=== PATIENT | male | born 1995 | race African-American/Black ===

== ENCOUNTER 2018-01-17 13:46 | Emergency (ER) | payer SELFPAY ==
[~2018-01-17] VITALS: Ht 170.2 cm; Wt 92.1 kg
[~2018-01-17 13:46] MED LIST: ALBU1.25 NEB; ALBU2.5V5 NEB; ALBU8.5H6 IH; CIPR500T94 PO; CLIN300C8 PO; DIPH25CA58 PO; DOXY50CA PO; FAMO-63 PO; FLUT12AE IH; IPRA0.2S5 NEB; MUPI22OI TP; PRED20TA PO; PRED50TA PO
[2018-01-17] MEDS ORDERED: IPRATRPIUM/ALBUTEROL 0.5/2.5MG 3 ML NEBU. NEB ONE (14:15)
--- NOTE | 2018-01-17 14:19 | PHYS DOC ---
Past History Past Medical History: Asthma, Other Past Surgical History: No Surgical History Smoking: Cigarettes Alcohol Use: None Drug Use: Marijuana Adult General Chief Complaint Chief Complaint: SHORTNESS OF BREATH HPI HPI 22-year-old male patient with history of asthma and smoking complaining of cough for 2 months. Patient states he had intermittent episodes of productive cough with yellow sputum and shortness of breath with nasal congestion and sore throat without fever and chills and vomiting and diarrhea. Patient states he was seen by his primary care physician and treated with Zithromax couple weeks ago without improvement of his condition. Patient stated home nebulizer and inhaler does not helping for his shortness of breath and he thinks he had pneumonia. Patient also states his physician did not give him prednisone that usually helping for his shortness of breath. Review of Systems Review of Systems Constitutional: Denies fever or chills [] Eyes: Denies change in visual acuity, redness, or eye pain [] HENT: Reports nasal congestion and sore throat [] Respiratory: Reports cough and shortness of breath [] Cardiovascular: No additional information not addressed in HPI [] GI: Denies abdominal pain, nausea, vomiting, bloody stools or diarrhea [] : Denies dysuria or hematuria [] Musculoskeletal: Denies back pain or joint pain [] Integument: Denies rash or skin lesions [] Neurologic: Denies headache, focal weakness or sensory changes [] Endocrine: Denies polyuria or polydipsia [] All other systems were reviewed and found to be within normal limits, except as documented in this note. Current Medications Current Medications Current Medications Medications (Trade) Dose Ordered Sig/[facility] Start Time Stop Time Status Last Admin Dose Admin Albuterol/ Ipratropium (Duoneb) 3 ml 1X ONCE 01/17/18 14:15 01/17/18 14:16 Methylprednisolone Sodium Succinate (SOLU-Medrol 125MG VIAL) 125 mg 1X ONCE 01/17/18 14:30 01/17/18 14:31 Allergies Allergies Allergies Coded Allergies Type Severity Reaction Last Updated Verified Penicillins Allergy Severe 07/07/16 Yes Sulfa (Sulfonamide Antibiotics) Allergy Severe 07/07/16 Yes azithromycin Allergy Intermediate 07/07/16 Yes cefaclor Allergy Intermediate 07/07/16 Yes Physical Exam Physical Exam Constitutional: Well developed, well nourished, mild distress, non-toxic appearance. [] HENT: Normocephalic, atraumatic, bilateral external ears normal, oropharynx moist, no oral exudates, nose normal. [] Eyes: PERRLA, EOMI, conjunctiva normal, no discharge. [] Neck: Normal range of motion, no tenderness, supple, no stridor. [] Cardiovascular:Heart rate regular rhythm, no murmur [] Lungs & Thorax: Bilateral breath sounds clear to auscultation [] Abdomen: Bowel sounds normal, soft, no tenderness, no masses, no pulsatile masses. [] Skin: Warm, dry, no erythema, no rash. [] Back: No tenderness, no CVA tenderness. [] Extremities: No tenderness, no cyanosis, no clubbing, ROM intact, no edema. [] Neurologic: Alert and oriented X 3, normal motor function, normal sensory function, no focal deficits noted. [] Psychologic: Affect normal, judgement normal, mood normal. [] Current Patient Data Vital Signs Vital Signs Date Time Temp Pulse Resp B/P (MAP) Pulse Ox O2 Delivery O2 Flow Rate FiO2 01/17/18 13:54 98.2 107 18 98 Room Air EKG EKG [] Radiology/Procedures Radiology/[place] [address] IMAGING REPORT Signed PATIENT: JACOB PANDEY ACCOUNT: [id number] : 1995 LOCATION: ER AGE: 22 SEX: M EXAM STATUS: REG ER ORD. PHYSICIAN: ESTEBAN GALDAMEZ MD REASON: cough and shortness of breath for 2 months PROCEDURE: CHEST PA & LATERAL PA and lateral chest radiograph. History: Wheezing cough for 2 months. Asthma. Smoking history. Comparison: July 07, 2016. Findings: Cardiomediastinal silhouette is within normal limits for size. No pneumothorax or pleural effusion is identified. There is thought to be a mild infiltrate involving the right lung base. Impression: 1. Mild infiltrate involving the right lung base. Electronically signed by: Jules Olivarez MD (01/17/2018 2:31 PM) [place] [id number] DICTATED AND SIGNED BY: JULES OLIVAREZ MD DATE: 01/17/18 9795 CC: ESTEBAN GALDAMEZ MD; PCP,NO ~ [] Course & Med Decision Making Course & Med Decision Making Pertinent Imaging studies reviewed. (See chart for details) Evaluation of patient in ER showed 22-year-old female patient with history of asthma and smoking complaining of cough for 2 months without respond to outpatient treatment. Patient had unremarkable physical exam. X-ray showed small right lower lobe infiltrate. Patient is allergic to several medication and does not have insurance and plan to give prescription for Cipro and course of prednisone and instruction to quit smoking and follow up with his primary care physician. [] Dragon Disclaimer Dragon Disclaimer This electronic medical record was generated, in whole or in part, using a voice recognition dictation system. Departure Departure: Impression: Primary Impression: Right lower lobe pneumonia Additional Impressions: Asthma exacerbation Tobacco abuse Tobacco abuse counseling Disposition: HOME, SELF-CARE (At 1447) Condition: IMPROVED Referrals: PCP,NO (PCP) Patient Instructions: Asthma, Acute Bronchospasm, Pneumonia, Adult, Smoking Cessation, Tips For Success Additional Instructions: Drink plenty of liquids Follow-up with your primary care physician in 3-5 days Return to ER if not getting better Scripts Prednisone (PREDNISONE) 50 Mg Tablet 1 TAB PO DAILY, #5 TAB Prov: SETEBAN GALDAMEZ MD 01/17/18 Benzonatate (TESSALON PERLE) 100 Mg Capsule 1 CAP PO TID, #30 CAP Prov: ESTEBAN GALDAMEZ MD 01/17/18 Ciprofloxacin Hcl (CIPRO) 500 Mg Tablet 1 TAB PO BID, #14 TAB Prov: ESTEBAN GALDAMEZ MD 01/17/18 Problem Qualifiers ESTEBAN GALDAMEZ MD January 17, 2018 14:19
[2018-01-17] MEDS ORDERED: methylPREDNISolone SOD SUCC PF 125 MG/2 ML VIAL. IM ONE (14:30)
--- NOTE | 2018-01-17 14:35 | RAD ---
PA and lateral chest radiograph. History: Wheezing cough for 2 months. Asthma. Smoking history. Comparison: July 07, 2016. Findings: Cardiomediastinal silhouette is within normal limits for size. No pneumothorax or pleural effusion is identified. There is thought to be a mild infiltrate involving the right lung base. Impression: 1. Mild infiltrate involving the right lung base. Electronically signed by: Jules Olivarez MD (01/17/2018 2:31 PM) [place] [id number]
[2018-01-17] MEDS ORDERED: PRED50TA PO (14:51)
[2018-01-17] MEDS ORDERED: CIPR500T94 PO (14:51)
[2018-01-17] MEDS ORDERED: BENZ100C PO (14:51)
[2018-01-17 14:59] VITALS: BP 143/95
== END 2018-01-17 15:00 | disposition home or self-care (01) ==
LOC: ER 13:46
DX: J18.1 Lobar pneumonia, unspecified organism (principal); J45.901 Unspecified asthma with (acute) exacerbation; F17.210 Nicotine dependence, cigarettes, uncomplicated; Z71.6 Tobacco abuse counseling; F12.10 Cannabis abuse, uncomplicated; Z88.0 Allergy status to penicillin; Z88.2 Allergy status to sulfonamides; Z88.1 Allergy status to other antibiotic agents
CPT/HCPCS: 71046; 94640; 96372; 99284; J2930; J7620

== ENCOUNTER 2018-04-12 19:17 | Emergency (ER) | payer SELFPAY ==
[~2018-04-12] VITALS: Ht 172.7 cm; Wt 90.7 kg
[~2018-04-12 19:17] MED LIST changes: +BENZ100C PO
[2018-04-12] MEDS ORDERED: IPRATRPIUM/ALBUTEROL 0.5/2.5MG 3 ML NEBU. NEB ONE (20:30)
[2018-04-12] MEDS ORDERED: predniSONE 20 MG TABLET PO ONE (20:30)
--- NOTE | 2018-04-12 21:26 | RAD ---
PA and lateral chest radiograph. History: Cough. Comparison: January 17, 2018. Findings: Cardiomediastinal silhouette is within normal limits for size. Bilateral lung hdz appear clear without evidence of infiltrate, effusion, or pneumothorax. Impression: 1. No acute cardiopulmonary process. Electronically signed by: Jules Olivarez MD (04/12/2018 9:22 PM) [facility]
[2018-04-12 21:30] VITALS: BP 132/71
[2018-04-12] MEDS ORDERED: PRED20TA PO (21:36)
[2018-04-12] MEDS ORDERED: ALBU1.25 NEB (21:36)
[2018-04-12] MEDS ORDERED: ALBU8.5H8 INH (21:36)
[2018-04-12] MEDS ORDERED: BENZ100C PO (21:36)
--- NOTE | 2018-04-12 21:37 | PHYS DOC ---
Past History Past Medical History: Asthma, Other Past Surgical History: No Surgical History Smoking: Cigarettes Alcohol Use: Occasionally Drug Use: Marijuana Adult General Chief Complaint Chief Complaint: COUGH HPI HPI 22-year-old male with past medical history of asthma presents with report of increased wheezing with associated nonproductive cough 3 days. Denies fever or chills. 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 Reports he also got his child sick. Reports some associated nasal congestion. Patient reports using an albuterol inhaler prior to arrival without significant improvement. Review of Systems Review of Systems Constitutional: Denies fever or chills [] Eyes: Denies change in visual acuity, redness, or eye pain [] HENT: Reports nasal congestion and mild sore throat Respiratory: Reports nonproductive cough and wheezing Cardiovascular: Denies chest pain or syncope GI: Denies abdominal pain, nausea, vomiting, bloody stools or diarrhea [] : Denies dysuria or hematuria [] Musculoskeletal: Denies back pain or joint pain [] Integument: Denies rash or skin lesions [] Neurologic: Denies headache, focal weakness or sensory changes [] Complete systems were reviewed and found to be within normal limits, except as documented in this note. Current Medications Current Medications Current Medications Medications (Trade) Dose Ordered Sig/[facility] Start Time Stop Time Status Last Admin Dose Admin Albuterol/ Ipratropium (Duoneb) 3 ml 1X ONCE 04/12/18 20:30 04/12/18 20:31 DC 04/12/18 20:30 3 ML Prednisone (Prednisone) 40 mg 1X ONCE 04/12/18 20:30 04/12/18 20:31 DC 04/12/18 20:36 40 MG Allergies Allergies Allergies Coded Allergies Type Severity Reaction Last Updated Verified Penicillins Allergy Severe 07/07/16 Yes Sulfa (Sulfonamide Antibiotics) Allergy Severe 07/07/16 Yes azithromycin Allergy Intermediate 07/07/16 Yes cefaclor Allergy Intermediate 07/07/16 Yes Physical Exam Physical Exam Constitutional: Well developed, well nourished, no acute distress, non-toxic appearance. [] HENT: Normocephalic, atraumatic, oropharynx moist, no oral exudates, nose- turbinates enlarged, no sinus tenderness on palpation Eyes: EOMI, conjunctiva normal, no discharge. [] Neck: Normal range of motion, no tenderness, supple, no stridor. [] Cardiovascular:Heart rate regular rhythm, no murmur [] Lungs & Thorax: Expiratory wheezing appreciated, no respiratory distress Abdomen: Bowel sounds normal, soft, no tenderness, no masses, no pulsatile masses. [] Skin: Warm, dry, no erythema, no rash. [] Back: No tenderness, no CVA tenderness. [] Extremities: No tenderness, no cyanosis, no clubbing, ROM intact, no edema. [] Neurologic: Alert and oriented X 3, normal motor function, normal sensory function, no focal deficits noted. [] Psychologic: Affect normal, judgement normal, mood normal. [] Current Patient Data Vital Signs Vital Signs Date Time Temp Pulse Resp B/P (MAP) Pulse Ox O2 Delivery O2 Flow Rate FiO2 04/12/18 19:29 98.7 89 20 98 Room Air EKG EKG [] Radiology/Procedures Radiology/Procedures PROCEDURE: CHEST PA & LATERAL PA and lateral chest radiograph. History: Cough. Comparison: January 17, 2018. Findings: Cardiomediastinal silhouette is within normal limits for size. Bilateral lung hdz appear clear without evidence of infiltrate, effusion, or pneumothorax. Impression: 1. No acute cardiopulmonary process. Electronically signed by: Jules Olivarez MD (04/12/2018 9:22 PM) [facility] Course & Med Decision Making Course & Med Decision Making Pertinent Labs and Imaging studies reviewed. (See chart for details) Patient with past nuchal history of asthma presents with history of present illness and physical exam consistent for URI. Symptomatic treatment provided with respiratory nebs and oral steroid. Patient reports interval improvement of symptoms. Chest x-ray clear. Patient stable for discharge with outpatient follow -up with PCP. Discussed findings and plan with patient, who acknowledges understanding and agreement. Dragon Disclaimer Dragon Disclaimer This electronic medical record was generated, in whole or in part, using a voice recognition dictation system. Departure Departure: Impression: Primary Impression: Asthma exacerbation Additional Impression: Upper respiratory infection Condition: IMPROVED Referrals: PCP,NO (PCP) Patient Instructions: Asthma, Adult, [id number], Upper Respiratory Infection , Adult, [id number] Scripts Prednisone (PREDNISONE) 20 Mg Tablet 2 TAB PO DAILY for 5 Days, #10 TAB Prov: JULES BEYER DO 04/12/18 Albuterol Sulfate (PROAIR HFA INHALER) 8.5 Gm Hfa.aer.ad 1 PUFF INH PRN Q6HRS PRN for SHORTNESS OF BREATH, #1 INHALER 0 Refills Prov: JULES BEYER DO 04/12/18 Albuterol Sulfate (ALBUTEROL SULFATE NEB SOLN) 1.25 Mg/3 Ml Vial.neb 1 VIAL NEB Q4-6HRS PRN for WHEEZING, #150 ML 0 Refills Prov: JULES BEYER DO 04/12/18 Benzonatate (TESSALON PERLE) 100 Mg Capsule 1 CAP PO TID, #30 CAP Prov: JULES BEYER DO 04/12/18 Problem Qualifiers Primary Impression: Asthma exacerbation Asthma severity: mild Asthma persistence: persistent Qualified Codes: J45.31 - Mild persistent asthma with (acute) exacerbation Additional Impression: Upper respiratory infection URI type: unspecified viral URI Qualified Codes: J06.9 - Acute upper respiratory infection, unspecified JULES BEYER DO Apr 12, 2018 21:37
== END 2018-04-12 21:45 | disposition home or self-care (01) ==
LOC: ER 19:17
DX: J45.901 Unspecified asthma with (acute) exacerbation (principal); J06.9 Acute upper respiratory infection, unspecified; F17.210 Nicotine dependence, cigarettes, uncomplicated; Z88.0 Allergy status to penicillin; Z88.2 Allergy status to sulfonamides; Z88.1 Allergy status to other antibiotic agents
CPT/HCPCS: 71046; 94640; 99284; J7512; J7620

== ENCOUNTER 2018-11-19 14:07 | Emergency (ER) | payer SELFPAY ==
[~2018-11-19] VITALS: Ht 172.7 cm; Wt 90.7 kg
[~2018-11-19 14:07] MED LIST changes: +ALBU2.5V8 INH
[2018-11-19 14:17] VITALS: BP 161/84
--- NOTE | 2018-11-19 14:27 | PHYS DOC ---
Past History Past Medical History: Asthma, Other Past Surgical History: No Surgical History Smoking: Cigarettes Alcohol Use: Occasionally Drug Use: Marijuana Adult General Chief Complaint Chief Complaint: FLU SYMPTOM HPI HPI 22-year-old male presents with 3 day history of nasal drainage, congestion, cough, and general ill feeling. He's had a low-grade fever but did not give me a number. He denies feeling crampy of, but admits feeling somewhat weak. He denies nausea, vomiting, diarrhea and constipation. Patient has a history of hereditary spherocytosis. Review of Systems Review of Systems Constitutional: Fever and chills [] Eyes: Denies change in visual acuity, redness, or eye pain [] HENT: nasal congestion with sore throat [] Respiratory: Cough without shortness of breath [] Cardiovascular: No additional information not addressed in HPI [] GI: Denies abdominal pain, nausea, vomiting, bloody stools or diarrhea [] : Denies dysuria or hematuria [] Musculoskeletal: Denies back pain or joint pain [] Integument: Denies rash or skin lesions [] Neurologic: Denies headache, focal weakness or sensory changes [] Endocrine: Denies polyuria or polydipsia [] All other systems were reviewed and found to be within normal limits, except as documented in this note. Allergies Allergies Allergies Coded Allergies Type Severity Reaction Last Updated Verified Penicillins Allergy Severe 07/07/16 Yes Sulfa (Sulfonamide Antibiotics) Allergy Severe 07/07/16 Yes azithromycin Allergy Intermediate 07/07/16 Yes cefaclor Allergy Intermediate 07/07/16 Yes Physical Exam Physical Exam Constitutional: Well developed, well nourished, no acute distress, non-toxic appearance. [] HENT: Normocephalic, atraumatic, bilateral external ears normal, oropharynx moist, no oral exudates, nose with clear drainage. [] Eyes: PERRLA, EOMI, conjunctiva normal, no discharge. [] Neck: Normal range of motion, no tenderness, supple, no stridor. [] Cardiovascular:Heart rate regular rhythm, no murmur [] Lungs & Thorax: Bilateral breath sounds decreased but clear to auscultation [] Abdomen: Bowel sounds normal, soft, no tenderness, no masses, no pulsatile masses. [] Skin: Warm, dry, no erythema, no rash. [] Back: No tenderness, no CVA tenderness. [] Extremities: No tenderness, no cyanosis, no clubbing, ROM intact, no edema. [] Neurologic: Alert and oriented X 3, normal motor function, normal sensory function, no focal deficits noted. [] Psychologic: Affect normal, judgement normal, mood normal. [] EKG EKG [] Radiology/Procedures Radiology/Procedures [] Impressions: Chest, PA and Lateral: Technique: PA and lateral views of the chest were obtained. History: Cough, weakness. Comparison: 04/12/2018. Findings: The heart and pulmonary vasculature appear within normal limits. There are mild patchy airspace opacities identified in the right upper lobe of the lung.. The pleural margins are clear. Impression: Mild patchy airspace opacities identified in the right upper lobe of the lung likely atelectasis or infiltrates.. Electronically signed by: Johnson Young MD (11/19/2018 3:28 PM) [facility] DICTATED AND SIGNED BY: JOHNSON YOUNG MD DATE: 11/19/18 1525 CC: TERESA KRUEGER DO; PCP,NO Course & Med Decision Making Course & Med Decision Making Pertinent Labs and Imaging studies reviewed. (See chart for details) Patient's chest x-ray is highly suspicious for pneumonia. I will treat him with doxycycline since he is allergic to penicillins, sulfas, and azithromycin. We will give the first dose in the ED. She continues to be tachycardic and I want to rule out PE. CTA of the chest has been ordered. CTA is negative for PE and shows further evidence of pneumonia. I will discharge him with doxycycline as previously planned. [] Dragon Disclaimer Dragon Disclaimer This electronic medical record was generated, in whole or in part, using a voice recognition dictation system. Departure Departure: Impression: Primary Impression: Pneumonia Disposition: HOME, SELF-CARE Condition: STABLE Referrals: PCP,NO (PCP) Patient Instructions: Pneumonia, Adult, [id number] Scripts Doxycycline Hyclate (DOXYCYCLINE HYCLATE) 100 Mg Tablet 1 TAB PO BID for pneumonia, #14 TAB Prov: TERESA KRUEGER DO 11/19/18 Problem Qualifiers Primary Impression: Pneumonia Pneumonia type: due to unspecified organism Laterality: right Lung location : upper lobe of lung Qualified Codes: J18.1 - Lobar pneumonia, unspecified organism TERESA KRUEGER DO Nov 19, 2018 14:27
[2018-11-19 15:01] LABS: INFLUENZA A PATIENT NEGATIVE (NEGATIVE); INFLUENZA B PATIENT NEGATIVE (NEGATIVE)
[2018-11-19 15:04] LABS: BASO # 0.1 x10^3/uL (0.0-0.2); BASO % 1 % (0-3); EOS # 0.4 x10^3/uL (0.0-0.7); EOS % 3 % (0-3); HEMATOCRIT 32.6 % (39.0-53.0); HEMOGLOBIN 11.8 g/dL (13.0-17.5); LYMPH # 1.2 x10^3/uL (1.0-4.8); LYMPH % 9 % (24-48); MEAN CORPUSCULAR HEMOGLOBIN 31 pg (25-35); MEAN CORPUSCULAR HGB CONC 36 g/dL (31-37); MEAN CORPUSCULAR VOLUME 87 fL (79-100); MONO # 0.6 x10^3/uL (0.0-1.1); MONO % 5 % (0-9); NEUT # 11.3 x10^3uL (1.8-7.7); NEUT % 83 % (31-73); PLATELET COUNT 197 x10^3/uL (140-400); RED BLOOD COUNT 3.77 x10^6/uL (4.30-5.70); RED CELL DISTRIBUTION WIDTH 25.3 % (11.5-14.5); WHITE BLOOD COUNT 13.5 x10^3/uL (4.0-11.0)
[2018-11-19 15:25] LABS: ALBUMIN 4.2 g/dL (3.4-5.0); CALCIUM 8.9 mg/dL (8.5-10.1); CREATININE 1.1 mg/dL (0.7-1.3); GFR 102.2; POTASSIUM 3.5 mmol/L (3.5-5.1); TOTAL BILIRUBIN 3.5 mg/dL (0.2-1.0); TOTAL PROTEIN 8.3 g/dL (6.4-8.2)
--- NOTE | 2018-11-19 15:30 | RAD ---
Chest, PA and Lateral: Technique: PA and lateral views of the chest were obtained. History: Cough, weakness. Comparison: 04/12/2018. Findings: The heart and pulmonary vasculature appear within normal limits. There are mild patchy airspace opacities identified in the right upper lobe of the lung.. The pleural margins are clear. Impression: Mild patchy airspace opacities identified in the right upper lobe of the lung likely atelectasis or infiltrates.. Electronically signed by: Johnson Young MD (11/19/2018 3:28 PM) [facility]
[2018-11-19] MEDS ORDERED: DOXYCYCLINE HYCLATE 100 MG TABLET PO ONE (16:00)
[2018-11-19] MEDS ORDERED: IOHEXOL 350 MG/ML 100 ML VIAL. IV ONE (16:00)
[2018-11-19 16:04] LABS: BACTERIA,URINE 0 /HPF (0-FEW); BILIRUBIN,URINE NEG (NEG); CLARITY,URINE CLEAR; GLUCOSE,URINE NEG (NEG); NITRITE,URINE POS (NEG); RBC,URINE 0 /HPF (0-2); SQUAMOUS EPITHELIAL CELL,UR OCC /LPF; UROBILINOGEN,URINE 4 mg/dL (0.2 mg/dL); WBC,URINE OCC /HPF (0-4)
[2018-11-19 16:05] LABS: COLOR,URINE AMBER
[2018-11-19] MEDS ORDERED: IPRATRPIUM/ALBUTEROL 0.5/2.5MG 3 ML NEBU. NEB ONE (16:15)
--- NOTE | 2018-11-19 17:55 | RAD ---
CT CHEST WITH CONTRAST, PULMONARY ANGIOGRAM History: short of breath, Omni 350 90 ml iv was given, pt shielded Comparison: Chest radiograph same day, CT PE study dated 07/07/2016 Technique: Helical CT of the chest was performed after the administration of 90 mL Omni 350 intravenous contrast according to PE protocol. Sagittal and coronal MIP reconstructions were obtained. Findings: There is suboptimal contrast opacification of the pulmonary arterial system. There is no evidence of central or lobar pulmonary embolism, but the segmental and subsegmental pulmonary arterial system cannot be evaluated. The thyroid is symmetric. Enlarged mediastinal and hilar lymph nodes. For instance a right paratracheal lymph node measures 2.5 x 1.5 cm (image 35, series 4), a right hilar lymph node measures 1.7 x 1.4 cm (image 55), and a left hilar lymph node measures 1. 8 x 1.3 cm (image 70). The thoracic aorta diameter is normal. The cardiac size is normal. There is no pericardial effusion. Triangular soft tissue density in the anterior mediastinum may relate to residual thymus tissue given patient's age. Small area of consolidation in the posterior aspect of the right upper lobe. Additional areas of patchy groundglass opacities/nodularity (for instance 0.6 cm groundglass nodule in the right upper lobe on image 37, series 4, 0.7 cm right lower lobe superior segment nodule on image 59, and 0.6 x 0.3 cm left lower lobe superior segment nodule along the major fissure on image 54). No pleural effusion is observed. There is no pneumothorax. The central airways are patent. The visualized upper abdomen is unremarkable. No acute osseous abnormality. IMPRESSION: 1. There is suboptimal contrast opacification of the pulmonary arterial system. There is no evidence of central or lobar pulmonary embolism, but the segmental and subsegmental pulmonary arterial system cannot be evaluated. 2. Small area of consolidation in the posterior aspect of the right upper lobe. Additional areas of bilateral patchy groundglass opacity/nodularity. Findings are most consistent with an infectious process. Follow-up CT chest could be obtained in 3 months. 3. Mediastinal and bilateral hilar adenopathy may be reactive. Recommend attention on follow-up. Electronically signed by: Tamir Ziegler MD (11/19/2018 5:52 PM) [place] [id number]
[2018-11-19] MEDS ORDERED: DOXY100T PO (18:08)
[2018-11-19] MEDS ORDERED: ALBU2.5V8 IH (18:13)
[2018-11-19 20:57] LABS: ANISOCYTOSIS SLIGHT; PLT ESTIMATE ADEQUATE (ADEQUATE); POLYCHROMASIA SLIGHT; SCHISTOCYTES OCC
== END 2018-11-19 18:00 | disposition home or self-care (01) ==
LOC: ER 14:07
DX: J18.1 Lobar pneumonia, unspecified organism (principal); J45.909 Unspecified asthma, uncomplicated; F17.210 Nicotine dependence, cigarettes, uncomplicated; Z88.0 Allergy status to penicillin; Z88.2 Allergy status to sulfonamides; Z88.1 Allergy status to other antibiotic agents
CPT/HCPCS: 36415; 71046; 71275; 80053; 81001; 85025; 87040; 87086; 87804; 94640; 99284; J7620; Q9967

== ENCOUNTER 2019-03-03 | Emergency (ER) | payer SELFPAY ==
[~2019-03-03] VITALS: Ht 325.1 cm; Wt 84.1 kg
[~2019-03-03] MED LIST changes: +ALBU2.5V8 IH; +DOXY100T PO
[2019-03-03 00:05] VITALS: BP 161/84
--- NOTE | 2019-03-03 00:07 | ED.ADGEN ---
Past History Past Medical History: Other Past Surgical History: No Surgical History Smoking: Cigarettes Alcohol Use: None Drug Use: None Adult General Chief Complaint Chief Complaint ".. I was breaking a board.. with a shovel.. and it bounce back and hit my Rt. hand.. " HPI HPI Patient is a 23 year old male who presents with above hx and complaints 12 cm laceration to Rt. hand. Distal neurovascular intact. Patient is right-hand dominant. Patient's last tetanus was 2 years ago. No other injuries. Patient has no hx of immunosuppression. No travel. No specific ill contacts. Review of Systems Review of Systems Constitutional: Denies fever or chills [] Eyes: Denies change in visual acuity, redness, or eye pain [] HENT: Denies nasal congestion or sore throat [] Respiratory: Denies cough or shortness of breath [] Cardiovascular: No additional information not addressed in HPI [] GI: Denies abdominal pain, nausea, vomiting, bloody stools or diarrhea [] : Denies dysuria or hematuria [] Musculoskeletal: Denies back pain or joint pain [] Integument: Denies rash or skin lesions []complains of laceration to right hand Neurologic: Denies headache, focal weakness or sensory changes [] Endocrine: Denies polyuria or polydipsia [] All other systems were reviewed and found to be within normal limits, except as documented in this note. Family History Family History Noncontributory Current Medications Current Medications Current Medications Medications (Trade) Dose Ordered Sig/Abner Start Time Stop Time Status Last Admin Dose Admin Bacitracin (Bacitracin Topical Pkt) 1 pkt 1X ONCE 03/03/19 00:30 03/03/19 00:31 UNV Allergies Allergies Allergies Coded Allergies Type Severity Reaction Last Updated Verified Penicillins Allergy Severe 07/07/16 Yes Sulfa (Sulfonamide Antibiotics) Allergy Severe 07/07/16 Yes azithromycin Allergy Intermediate 07/07/16 Yes cefaclor Allergy Intermediate 07/07/16 Yes Physical Exam Physical Exam Constitutional: Well developed, well nourished, mild distress, non-toxic appearance. [] HENT: Normocephalic, atraumatic, bilateral external ears normal, oropharynx moist, no oral exudates, nose normal. [] Eyes: PERRLA, EOMI, conjunctiva normal, no discharge. [] Neck: Normal range of motion, no tenderness, supple, no stridor. [] Cardiovascular:Heart rate regular rhythm, no murmur [] Lungs & Thorax: Bilateral breath sounds clear to auscultation [] Abdomen: Bowel sounds normal, soft, no tenderness, no masses, no pulsatile masses. [] Skin: Warm, dry, no erythema, no rash. [] Back: No tenderness, no CVA tenderness. [] Extremities: No tenderness, no cyanosis, no clubbing, ROM intact, no edema. [] 12 cm laceration to the dorsal side of right hand Neurologic: Alert and oriented X 3, normal motor function, normal sensory function, no focal deficits noted. [] Psychologic: Affect anxious, judgement normal, mood normal. [] EKG EKG [] Radiology/Procedures Radiology/Procedures [] Course & Med Decision Making Course & Med Decision Making Pertinent Labs and Imaging studies reviewed. (See chart for details) Suture note- Laceration repair- hand washed with soap and water. Betadine applied. Injected edge laceration with lidocaine. Irrigated laceration normal saline. Wound or laceration cleaned with surgical scrub brush. Closed laceration with 10 juice. Patient keep laceration clean and dry. Apply Polysporin 4 times a day. Follow-up primary care. Return if any concerns. [place] out in 10 days. [] Final Impression Final Impression 1. Rt. hand Laceration 12 cm[] Dragon Disclaimer Dragon Disclaimer This electronic medical record was generated, in whole or in part, using a voice recognition dictation system. Discharge Summary Visit Information Final Diagnosis Problems Medical Problems: (1) Laceration Status: Acute Brief Hospital Course Allergies Allergies Coded Allergies Type Severity Reaction Last Updated Verified Penicillins Allergy Severe 07/07/16 Yes Sulfa (Sulfonamide Antibiotics) Allergy Severe 07/07/16 Yes azithromycin Allergy Intermediate 07/07/16 Yes cefaclor Allergy Intermediate 07/07/16 Yes Brief Hospital Course Mr. Guerrero is a 23 old male who presented with laceration Rt. hand. Discharge Information Condition at Discharge: Improved, Stable Disposition/Orders: D/C to Home Dischare Medications Current Medications Bacitracin (Bacitracin Topical Pkt) 1 pkt 1X ONCE TP ; Start 03/03/19 at 00:30; Stop 03/03/19 at 00:31; Status UNV Active Scripts Active Ventolin Hfa Inhaler (Albuterol Sulfate) 18 Gm Hfa.aer.ad 2 Puff IH PRN Q4HRS PRN Please also include a spacer Doxycycline Hyclate 100 Mg Tablet 1 Tab PO BID Prednisone 20 Mg Tablet 2 Tab PO DAILY 5 Days Proair Hfa Inhaler (Albuterol Sulfate) 8.5 Gm Hfa.aer.ad 1 Puff INH PRN Q6HRS PRN Albuterol Sulfate Neb Soln (Albuterol Sulfate) 1.25 Mg/3 Ml Vial.neb 1 Vial NEB Q4-6HRS PRN Tessalon [place] (Benzonatate) 100 Mg Capsule 1 Cap PO TID Prednisone 50 Mg Tablet 1 Tab PO DAILY Tessalon [place] (Benzonatate) 100 Mg Capsule 1 Cap PO TID Cipro (Ciprofloxacin Hcl) 500 Mg Tablet 1 Tab PO BID Prednisone 50 Mg Tablet 50 Mg PO DAILY Benadryl (Diphenhydramine Hcl) 25 Mg Capsule 50 Mg PO QIDPRN PRN Clindamycin Hcl 300 Mg Capsule 1 Cap PO TID Prednisone 20 Mg Tablet 60 Mg PO DAILY Albuterol Sulfate Hfa Inhaler (Albuterol Sulfate) 8.5 Gm Hfa.aer.ad 8.5 Gm IH PRN Q4-6HRS PRN Flovent 110MCG Hfa (Fluticasone Propionate) 12 Gm Aer.w.adap 2 Puff IH BID Ipratropium [place] 0.2 Mg/1 Ml Solution 1 Vial NEB QID Albuterol Sulfate Neb Soln (Albuterol Sulfate) 2.5 Mg/3 Ml Vial.neb 1 Vial NEB PRN Q4HRS Prednisone 20 Mg Tablet 3 Tab PO DAILY Reported Albuterol Sulfate Neb Soln (Albuterol Sulfate) 1.25 Mg/3 Ml Vial.neb 1.25 Mg NEB Q4-6HRS PRN Dragon Disclaimer This chart was dictated in whole or in part using Voice Recognition software in a busy, high-work load, and often noisy Emergency Department environment. It may contain unintended and wholly unrecognized errors or omissions. YVAN QUEZADA MD Mar 03, 2019 00:07
[2019-03-03] MEDS ORDERED: BACITRACIN ZINC TOPICAL OINT PACKET. TP ONE (00:30)
== END 2019-03-03 00:59 | disposition home or self-care (01) ==
LOC: ER
DX: S61.411A Laceration without foreign body of right hand, initial encounter (principal); Z88.0 Allergy status to penicillin; Z88.2 Allergy status to sulfonamides; Z88.1 Allergy status to other antibiotic agents; F17.210 Nicotine dependence, cigarettes, uncomplicated; W27.8XXA Contact with other nonpowered hand tool, initial encounter; Y93.89 Activity, other specified; Y92.89 Other specified places as the place of occurrence of the external cause; Y99.8 Other external cause status
CPT/HCPCS: 12004; 99283

== ENCOUNTER 2019-03-12 12:18 | Emergency (ER) | payer SELFPAY ==
[~2019-03-12] VITALS: Ht 325.1 cm; Wt 84.1 kg
--- NOTE | 2019-03-12 12:44 | PHYS DOC ---
Past History Past Medical History: Asthma, Pneumonia, URI, Other Past Surgical History: No Surgical History Smoking: Cigarettes Alcohol Use: None Drug Use: None Adult General Chief Complaint Chief Complaint: SUTURE/STAPLE REMOVAL HPI HPI Patient is a 23 year old male who presents to the emergency department for removal of juice. Patient was seen on March 03, 2019 after suffering a laceration to the base of the right thumb. Patient wound was cleaned and treated with surgical juice. States that since treatment he has had no problems. Denies any pain or drainage from the wound states he is able to move the thumb normally. Review of Systems Review of Systems Constitutional: Denies fever or chills [] Musculoskeletal: Denies back pain or joint pain [] Integument: Wound to right thumb[] Neurologic: Denies headache, focal weakness or sensory changes [] All other systems were reviewed and found to be within normal limits, except as documented in this note. Allergies Allergies Allergies Coded Allergies Type Severity Reaction Last Updated Verified Penicillins Allergy Severe 07/07/16 Yes Sulfa (Sulfonamide Antibiotics) Allergy Severe 07/07/16 Yes azithromycin Allergy Intermediate 07/07/16 Yes cefaclor Allergy Intermediate 07/07/16 Yes Physical Exam Physical Exam Constitutional: Well developed, well nourished, no acute distress, non-toxic appearance. [] Skin: Warm, dry, longitudinal right thumb wound healing well with [address] [] Extremities: No tenderness, no cyanosis, no clubbing, ROM intact, no edema. [] Neurologic: Alert and oriented X 3, normal motor function, normal sensory function, no focal deficits noted. [] Current Patient Data Vital Signs See nurse's notes. Vital signs reviewed and are stable. Lab Results Not performed EKG EKG Not performed[] Radiology/Procedures Radiology/Procedures Indication: [place] in place for 10 days Procedure: The patient was placed in the appropriate position and the juice were removed without difficulty. Other items: Total Juice removed: 9 The patient tolerated the procedure without difficulty. Complications: None[] Course & Med Decision Making Course & Med Decision Making Pertinent Labs and Imaging studies reviewed. (See chart for details) Juice removed from wound. Slight overlap of wound edges at proximal portion of wound. Steri-Strip placed at this area. Recommended to allow Steri-Strips fall off after 5-7 days. Advised follow-up with primary doctor in 1 week as needed and return to the emergency department for any worsening symptoms. Patient was understanding and in agreement with treatment plan. Dragon Disclaimer Dragon Disclaimer This electronic medical record was generated, in whole or in part, using a voice recognition dictation system. Departure Departure: Impression: Primary Impression: Encounter for staple removal Disposition: HOME, SELF-CARE Condition: GOOD Referrals: PCP,NO (PCP) Patient Instructions: Staple Removal, Care After Additional Instructions: Allow Steri-Strip to stay in place over the next 5-7 days. Follow-up with your primary doctor as needed. Return to the emergency department for any worsening symptoms. CORY GALLEGOS MD Mar 12, 2019 12:44
== END 2019-03-12 12:53 | disposition home or self-care (01) ==
LOC: ER 12:18
DX: S61.011D Laceration without foreign body of right thumb without damage to nail, subsequent encounter (principal); J45.909 Unspecified asthma, uncomplicated; F17.210 Nicotine dependence, cigarettes, uncomplicated; Z88.0 Allergy status to penicillin; Z88.2 Allergy status to sulfonamides; Z88.1 Allergy status to other antibiotic agents; X58.XXXD Exposure to other specified factors, subsequent encounter
CPT/HCPCS: 99281; 99282

== ENCOUNTER 2019-04-05 12:03 | Emergency (ER) | payer SELFPAY ==
[~2019-04-05] VITALS: Ht 175.3 cm; Wt 87.5 kg
[2019-04-05 12:20] VITALS: BP 144/66
[2019-04-05] MEDS ORDERED: DEXAMETHASONE SOD PHOS 10 MG/ML VIAL PO ONE (12:45)
--- NOTE | 2019-04-05 14:26 | PHYS DOC ---
Past History Past Medical History: No Pertinent History Past Surgical History: No Surgical History Smoking: Cigarettes Alcohol Use: None Drug Use: None Adult General Chief Complaint Chief Complaint: SORE THROAT HPI HPI Patient is a 23 yo m with sore throat x two days dry cough no fever Current Medications Current Medications Current Medications Medications (Trade) Dose Ordered Sig/Abner Start Time Stop Time Status Last Admin Dose Admin Dexamethasone Sodium Phosphate (Decadron) 8 mg 1X ONCE 04/05/19 12:45 04/05/19 12:45 DC Allergies Allergies Allergies Coded Allergies Type Severity Reaction Last Updated Verified Penicillins Allergy Severe 07/07/16 Yes Sulfa (Sulfonamide Antibiotics) Allergy Severe 07/07/16 Yes azithromycin Allergy Intermediate 07/07/16 Yes cefaclor Allergy Intermediate 07/07/16 Yes Physical Exam Physical Exam Constitutional: Well developed, well nourished, no acute distress, non-toxic appearance. [] HENT:oropharynx mild erythema no swelling no exudate. no significant lad Eyes: PERRLA, EOMI, conjunctiva normal, no discharge. [] Neck: Normal range of motion, no tenderness, supple, no stridor. [] lungs; normal effort no increased work of breathing Abdomen: Bowel sounds normal, soft, no tenderness, no masses, no pulsatile masses. [] Skin: Warm, dry, no erythema, no rash. [] Extremities: No tenderness, no cyanosis, no clubbing, ROM intact, no edema. [] Neurologic: Alert and oriented X 3, normal motor function, normal sensory function, no focal deficits noted. [] Psychologic: Affect normal, judgement normal, mood normal. [] Current Patient Data Vital Signs Vital Signs Date Time Temp Pulse Resp B/P (MAP) Pulse Ox O2 Delivery O2 Flow Rate FiO2 04/05/19 12:20 98.4 86 18 100 Room Air Lab Results Laboratory Tests Test 04/05/19 12:09 Group A Streptococcus Rapid Negative (NEGATIVE) EKG EKG [] Radiology/Procedures Radiology/Procedures [] Course & Med Decision Making Course & Med Decision Making Pertinent Labs and Imaging studies reviewed. (See chart for details) []bp 144 systolic rapid strep neg probably viral decadron given return prec reviewed Khloe Disclaimer Khloe Disclaimer This electronic medical record was generated, in whole or in part, using a voice recognition dictation system. Departure Departure: Impression: Primary Impression: Pharyngitis Disposition: HOME, SELF-CARE Condition: STABLE Patient Instructions: Sore Throat, Laan-tn-Hybx LJ ALBRIGHT MD Apr 05, 2019 14:26
== END 2019-04-05 12:36 | disposition home or self-care (01) ==
LOC: ER 12:03
DX: J02.9 Acute pharyngitis, unspecified (principal); F17.210 Nicotine dependence, cigarettes, uncomplicated; Z88.0 Allergy status to penicillin; Z88.2 Allergy status to sulfonamides; Z88.1 Allergy status to other antibiotic agents
CPT/HCPCS: 87070; 87880; 99283

== ENCOUNTER 2021-06-22 09:39 | Emergency (ER) | payer SELFPAY ==
[~2021-06-22] VITALS: Ht 175.3 cm; Wt 88.6 kg
[~2021-06-22 09:39] MED LIST changes: -CLIN300C8 PO; +CLIN300C9 PO
[2021-06-22 09:51] VITALS: BP 136/84
[2021-06-22] MEDS ORDERED: traMADol 50 MG TABLET PO ONE (10:15)
[2021-06-22] MEDS ORDERED: CLIN150C16 PO (10:25)
[2021-06-22] MEDS ORDERED: TRAM50TA PO (10:25)
--- NOTE | 2021-06-22 10:25 | PHYS DOC ---
Past History Additional Past Medical Histor: enlarged spleen, hereditary spherocytosis (BRYAN SIMENTAL) Past Surgical History: No Surgical History (BRYAN SIMENTAL) Smoking: Cigarettes Alcohol Use: None Drug Use: None (BRYAN SIMENTAL) General Adult EDM: Chief Complaint: DENTAL PROBLEM HPI: HPI: Patient is a 25 year old male who presents with 7-month history of right-sided dental pain. Patient states that he was told he needed to have the tooth extracted in November of this year, but was unable to do so secondary to the cost. Patient states his pain now is 9/10, and it is painful to eat and drink. Sometimes, the pain radiates into his shoulder. He reports associated night chills, but has not taken his temperature. He denies facial swelling, eye pain, ear pain, purulent discharge, chest pain, palpitations, shortness of breath, cough. Patient has no other complaints at this time. (BRYAN SIMENTAL) Review of Systems: Review of Systems: ROS negative except as mentioned in HPI. (BRYAN SIMENTAL) Allergies: Allergies: Allergies Coded Allergies Type Severity Reaction Last Updated Verified Penicillins Allergy Severe 07/07/16 Yes Sulfa (Sulfonamide Antibiotics) Allergy Severe 07/07/16 Yes azithromycin Allergy Intermediate 07/07/16 Yes cefaclor Allergy Intermediate 07/07/16 Yes amoxicillin Allergy Unknown 06/22/21 Yes (BRYAN SIMENTAL) Physical Exam: PE: Constitutional: Patient has a slight grimace and does not open his mouth much due to pain. Well developed, well nourished, well groomed, non-toxic appearance. HENT: Normocephalic, atraumatic, bilateral external ears normal, oropharynx moist, localized swelling to the right rear molars (#1 molar) without open lesion or discharge, nose normal. Eyes: PERRLA, EOMI, conjunctiva normal, no discharge. Neck: Normal range of motion, no tenderness, supple, no stridor. Cardiovascular:Heart rate regular rhythm, no murmur. Lungs & Thorax: Bilateral breath sounds clear to auscultation. Skin: Warm, dry, no erythema, no rash. (BRYAN SIMENTAL) Current Patient Data: Vital Signs: Vital Signs Date Time Temp Pulse Resp B/P (MAP) Pulse Ox O2 Delivery O2 Flow Rate FiO2 06/22/21 09:51 99.1 88 16 136/84 (101) 100 Room Air (BRYAN SIMENTAL) Heart Score: C/O Chest Pain: No (BRYAN SIMENTAL) Course & Med Decision Making: Course & Med Decision Making Pertinent Labs and Imaging studies reviewed. (See chart for details) Patient is aware that the affected tooth does need to be removed. He states that he is able to see a dentist this week, but that his pain has become too much to handle at home. He did state that he took several ibuprofen around 03 100 this morning. I instructed him not to take more than 800 mg every 6 hours. Patient understands and is agreeable to discharge plan with antibiotics and tramadol. (BRYAN SIMENTAL) Dragon Disclaimer: Dragon Disclaimer: This electronic medical record was generated, in whole or in part, using a voice recognition dictation system. (BRYAN SIMENTAL) Attending Co-Sign The patient was seen and interviewed as well as examined at the bedside. The chart was reviewed. The case was discussed. Agree with the plan of care. (TERESA KRUEGER DO) Departure Departure: Impression: Primary Impression: Dental abscess Disposition: HOME / SELF CARE / HOMELESS Condition: STABLE Referrals: PCP,MICHELLE (PCP) Patient Instructions: Dental Abscess, Dental Caries, Dental Pain, [id number] Additional Instructions: Please follow-up with your dentist as soon as possible, as we discussed. Today you are prescribed antibiotics as well as medication to help control your pain. You may use [id number] acetaminophen (do not take more than 4,000mg MAXIMUM per day) or ibuprofen (800mg every 6 hours MAXIMUM). if you have a fever. Please return to the emergency department if any of your symptoms worsen. Scripts Clindamycin Hcl (CLINDAMYCIN HCL) 150 Mg Capsule 3 CAP PO TID for dental infection for 10 Days, #90 CAP Take 3 capsules by mouth 3 times a day for 10 days. Please be sure to take full course of antibiotics unless otherwise instructed by your dentist. Prov: BRYAN SIMENTAL 06/22/21 Tramadol Hcl (TRAMADOL HCL) 50 Mg Tablet 50 MG PO PRN Q6HRS PRN for PAIN, #16 TAB Take 1 tablet by mouth as needed every 6 hours for pain. Prov: BRYAN SIMENTAL 06/22/21 BRYAN SIMENTAL Jun 22, 2021 10:25 TERESA KRUEGER DO Jun 22, 2021 17:08
== END 2021-06-22 11:10 | disposition home or self-care (01) ==
LOC: ER 09:39
DX: K04.7 Periapical abscess without sinus (principal); F17.210 Nicotine dependence, cigarettes, uncomplicated; Z88.0 Allergy status to penicillin; Z88.2 Allergy status to sulfonamides; Z88.1 Allergy status to other antibiotic agents
CPT/HCPCS: 99283

== ENCOUNTER 2022-01-25 15:45 | Emergency (ER) | payer SELFPAY ==
[~2022-01-25] VITALS: Ht 170.2 cm; Wt 80.0 kg
[~2022-01-25 15:45] MED LIST changes: +CLIN-95 PO; +CLIN150C16 PO; -CLIN300C9 PO; +TRAM50TA PO
== END 2022-01-25 15:53 | disposition left against medical advice (07) ==
LOC: ER 15:45
DX: R09.02 Hypoxemia (principal); Z53.21 Procedure and treatment not carried out due to patient leaving prior to being seen by health care provider